=== PATIENT | male | born 1975 | race Caucasian/White ===

== ENCOUNTER 2022-11-30 19:42 | Inpatient (IN) ==
[2022-11-30] MEDS ORDERED: Lactated Ringers 1000 ml BAG 1,000 ML IV ONE ×2 (19:56→22:47)
[2022-11-30 20:26] LABS: ABS Basophils 0.1 10^3/uL (0.0-0.1); ABS Eosinophils 0.1 10^3/uL (0.0-0.5); ABS Lymphocytes 1.9 10^3/uL (1.0-4.8); ABS Monocytes 0.6 10^3/uL (0.0-1.1); ABS Neutrophils 4.1 10^3/uL (1.5-7.6); ABS Nucleated RBC 0.01 10^3/ul; Eosinophil % 1.5 %; Hematocrit 38.2 % (38-53); Hemoglobin 13.2 g/dL (13.2-16.3); Lymphocyte % 28.6 %; Mean Corpuscular Hemoglobin 30.3 pg (27-33); Mean Corpuscular Hgb Conc 34.7 g/dL (31-36); Mean Corpuscular Volume 87.5 fL (80-97); Mean Platelet Volume 7.5 fL (7.5-11.2); Nucleated Red Blood Cells % 0.1 /100 WBC (0.0-0.4); Platelet Count 207 10^3/uL (150-450); Red Blood Count 4.37 10^6/uL (4.06-5.63); Red Cell Distribution Width 13.4 % (12-17); White Blood Count 6.8 10^3/uL (3.6-10.2)
[2022-11-30 20:44] LABS: ALT 11 U/L (7-52); AST 12 U/L (13-39); Albumin 4.3 g/dL (3.2-5.2); Albumin/Globulin Ratio 1.8 (1-3); Alkaline Phosphatase 85 U/L (35-149); Anion Gap 7 mmol/L (2-16); Blood Urea Nitrogen 23 mg/dL (6-24); CO2 Carbon Dioxide 25 mmol/L (22-32); Calcium 9.1 mg/dL (8.6-10.3); Chloride 109 mmol/L (101-111); Creatinine, Serum 1.04 mg/dL (0.67-1.17); Globulin 2.4 g/dL (2-4); Glucose 119 mg/dL (70-100); Potassium 4.3 mmol/L (3.5-5.0); Sodium 141 mmol/L (135-145); Total Protein 6.7 g/dL (6.4-8.9); eGFR CKD-EPI 90.2 (>60)
[2022-11-30 21:09] LABS: Alcohol, S < 13 mg/dL (<13); Salicylate < 2.50 mg/dL (<30)
[2022-11-30 21:23] LABS: Acetaminophen < 15 mcg/mL
[2022-12-01 02:35] LABS: Urine Benzodiazepine Screen None Detected (None Detect); Urine Cannabinoids Screen None Detected (None Detect); Urine Opiates Screen None Detected (None Detect)
[2022-12-01] MEDS ORDERED: Al Hydrox/Mg Hydrox/Simet LIQ 30 ML UDC PO PRN (03:33)
[2022-12-01] MEDS ORDERED: Nicotine GUM 2MG FRUIT FLAVOR PO PRN (04:00)
[2022-12-01] MEDS: Nicotine PATCH 14 MG/24 HR PATCH TRANSDERM SCH (15:05)
[2022-12-01] MEDS: Vitamin THERAPEUTIC TAB PO SCH ×3 (15:25→21:10)
[2022-12-02] MEDS: Vitamin THERAPEUTIC TAB PO SCH (07:53)
[2022-12-02 07:57] LABS: HDL Cholesterol 49.2 mg/dL
[2022-12-02 08:31] LABS: TSH Ultra Thyroid Stim Horm 0.81 mcIU/mL (0.34-5.60)
[2022-12-02] MEDS: Nicotine PATCH 14 MG/24 HR PATCH TRANSDERM SCH (09:59)
[2022-12-03] MEDS: Venlafaxine XR 75 mg PO SCH (08:11)
[2022-12-03] MEDS: Vitamin THERAPEUTIC TAB PO SCH (08:11)
[2022-12-03] MEDS: Nicotine PATCH 14 MG/24 HR PATCH TRANSDERM SCH (12:40)
[2022-12-03] MEDS: Ciproflox/Dexameth OTIC.SUSP 7.5 ML BTL LEFT EAR SCH (20:44)
[2022-12-04] MEDS: Ciproflox/Dexameth OTIC.SUSP 7.5 ML BTL LEFT EAR SCH ×2 (07:41→20:06)
[2022-12-04] MEDS: Venlafaxine XR 75 mg PO SCH (07:42)
[2022-12-04] MEDS: Vitamin THERAPEUTIC TAB PO SCH (07:42)
[2022-12-04] MEDS: Nicotine PATCH 14 MG/24 HR PATCH TRANSDERM SCH (07:44)
[2022-12-05] MEDS: Vitamin THERAPEUTIC TAB PO SCH (07:37)
[2022-12-05] MEDS: Ciproflox/Dexameth OTIC.SUSP 7.5 ML BTL LEFT EAR SCH ×2 (07:37→20:14)
[2022-12-05] MEDS: Nicotine PATCH 14 MG/24 HR PATCH TRANSDERM SCH (07:38)
[2022-12-06] MEDS: Nicotine PATCH 14 MG/24 HR PATCH TRANSDERM SCH (08:08)
[2022-12-06] MEDS: Vitamin THERAPEUTIC TAB PO SCH (08:08)
[2022-12-06] MEDS: Ciproflox/Dexameth OTIC.SUSP 7.5 ML BTL LEFT EAR SCH ×2 (08:08→20:36)
[2022-12-07 08:01] VITALS: BP 137/73
[2022-12-07] MEDS: Ciproflox/Dexameth OTIC.SUSP 7.5 ML BTL LEFT EAR SCH (08:24)
[2022-12-07] MEDS: Vitamin THERAPEUTIC TAB PO SCH (08:25)
[2022-12-07] MEDS: Nicotine PATCH 14 MG/24 HR PATCH TRANSDERM SCH (08:25)
[2022-12-07] MEDS ORDERED: Venlafaxine XR 75 mg PO ONE (13:24)
[2022-12-07] MEDS ORDERED: Venlafaxine XR 75 mg ONE (13:35)
== END 2022-12-07 14:33 | disposition home or self-care (01) | DRG 754 ==
LOC: ED 19:42 → BSU 12-01 02:00 → ED 12-01 03:15 → BSU 12-01 03:57
PROVIDERS: ADMIT Psychiatry & Neurology Psychiatry; ATTEND Psychiatry & Neurology Psychiatry